=== PATIENT | male | born 1965 | race Two or more races ===

== ENCOUNTER → 2024-09-30 | Outpatient (CLI) | payer BC ==
[~2024-09-30] VITALS: Ht 165.1 cm; Wt 163.3 kg
[2024-09-30] MEDS: REGADENOSON 0.4 MG/5 ML SYRG IV ONE ×2 (10:56→11:01)
--- NOTE | 2024-10-05 13:56 | DVHSR ---
APPROVED REPORT Exam: Nuclear Stress Test Indication: Chest pain BMI: 0 Medical History Medical History: CHF, SOB Allergies: No known drug allergies Stress Test Details Stress Test: Pharmacologic stress testing performed using 0.4 mg of regadenoson per 5 mL given IV ov er 10 seconds. HR Resting HR: 56 bpmMax Heart Rate (APMHR): 162.599483 bpm Max HR Achieved: 82 bpmTarget HR (85% APMHR): 137.970418 bpm % of APMHR: 50.62 Recovery HR: 66 bpm BP Resting BP: 142/95 mmHg Recovery BP: 126/77 mmHg ECG Resting ECG: Sinus Bradycardia Clinical Reason for Termination: Completed protocol Nurse Comments Recieved pt. from [facility]. A/Ox4 on RA. Connected to electronic device monitor, VS stable. PIV flushes well. Reviewed POC. Pt. verbalized understanding of procedure including risks and side ef fects, agrees for stress testing. Lexiscan stress test performed per protocol. ServiceFrame administered Cardiolite. Pt. tolerated well . Pt. stable, no change on exam. VS returned to baseline. Transferred to [facility] via wheelchair w/ te ch. Stress ECG Conclusion image artifact in inferior wall cliinical correlate lvef 67% no severe stress induced ischemia noted, mild inferior wall attenuation noted, clinical correlate NM EXAM: Myocardial Perfusion REST/STRESS Imaging Protocol: Rest Tc-99m/Stress Tc-99m 1 day Resting Data Rest SPECT myocardial perfusion imaging was performed in supine position 60 minutes following the int ravenous injection of 16 mCi of Tc-99m Sestamibi. Time of rest injection: 0940 Time of rest imagin Pharmacologic Stress Pharmacologic stress test was performed by injecting Regadenoson 0.4 mg IV push followed by the intra venous injection of 36 mCi of Tc-99m Sestamibi. Time of stress injection: 1102 Time of stress imagin Administration Route: IV Administration Site: Left Arm Gated Stress SPECT was performed 60 minutes after stress injection. The images were gated to evaluate regional wall motion and calculate left ventricular ejection fracti on. Stress only was performed in the Supine position. Nuclear Conclusion Nuclear Findings: negative for ischemia image artifact in inferior wall cliinical correlate lvef 67% no severe stress induced ischemia noted, mild inferior wall attenuation noted, clinical correlate
== END | disposition home or self-care (01) ==
LOC: XYW 09:24
PROVIDERS: ATTEND Internal Medicine
DX: R00.1 Bradycardia, unspecified (principal); R07.9 Chest pain, unspecified; I50.9 Heart failure, unspecified; R06.02 Shortness of breath
CPT/HCPCS: 78452; 93017; A9500; J2785